=== PATIENT | male | born 1990 | race Two or more races ===

== ENCOUNTER 2021-07-19 22:50 | Emergency (ER) | payer OTHER, SELFPAY ==
[2021-07-20 00:22] VITALS: BP 113/71; PULSE 83; RESP 16; TEMP 37.3; O2SAT 97; BMI 29.5
--- NOTE | 2021-07-20 00:49 | ED.ABDPAIN ---
HPI - Abdominal Pain General Chief Complaint: Abdominal Pain Stated Complaint: covid + Time Seen by Provider: 07/20/21 00:48 Source: patient Mode of arrival: ambulatory Limitations: no limitations History of Present Illness HPI narrative: Patient tested COVID positive on 07/14 another family member also sick was at [facility] at the left without being seen repeat COVID test was also positive and labs were done which were stable chest x-ray showed few infiltrates patient comes here now because of diffuse cramping abdominal pain with coughing with nausea and vomiting patient denies any shortness of breath was saturating 98% at room air Related Data Previous Rx's Medication Instructions Recorded dexamethasone 6 mg tablet 6 mg PO DAILY #7 tab 07/20/21 (Decadron) ondansetron 4 mg disintegrating 4 mg PO Q6-8H PRN #14 tab 07/20/21 tablet Allergies Allergy/AdvReac Type Severity Reaction Status Date / Time No Known Allergies Allergy Verified 07/20/21 01:00 Physical Exam Vital Signs: Vital Signs: Last Vital Signs Temp 99.1 F 07/20/21 00:22 Pulse 83 07/20/21 01:15 Resp 16 07/20/21 01:15 BP 140/83 H 07/20/21 01:15 Pulse Ox 98 07/20/21 01:15 Body Mass Index 29.5 Appearance: Alert. Oriented X3. No acute distress. Eyes: No pallor or icterus ENT: Pharynx normal. Oral Mucosa moist Neck: Normal inspection. Neck supple. CVS: Normal heart rate and rhythm. Pulses normal. Respiratory: No respiratory distress. Equal air entry bilateral, no wheezing/rales/rhonchi Abdomen: Soft and nontender. Bowel sounds are present, no mass palpable, no CVA tenderness Skin: Skin warm and dry. Normal skin color. Normal skin turgor. Extremities: No lower extremity edema. No calf tenderness Neuro: Oriented X 3. MDM - Abdominal Pain MDM Narrative Medical decision making narrative: Patient with COVID-19 symptoms without any hypoxia discharge patient home on Zofran and dexamethasone. Patient medical records were reviewed from [facility] showed leukopenia of 2.9 otherwise labs were stable chest x-ray done showed few infiltrates Discharge Plan Discharge Clinical Impression: COVID-19 Patient Disposition: Home, Self-Care Instructions: COVID-19 (Coronavirus Disease 2019) (ED) Additional Instructions: Drink plenty of fluids Tylenol/Motrin for pain and fever Zofran for vomiting Keep social distancing Prescriptions: New dexamethasone [Decadron] 6 mg tablet 6 mg PO DAILY Qty: 7 RF: 0 ondansetron 4 mg tablet,disintegrating 4 mg PO Q6-8H PRN (Reason: Vomiting) Qty: 14 RF: 0 Interventions: ED Discharge Assessment Last Done: 07/20/21 01:31 Discharge Date/Time: 07/20/21 01:31 [facility] Social History Social History Alcohol intake: never Patient Tobacco Use Status: Never used Tobacco Use of substances other than those prescribed or required for medical reasons: No Advance Directives: No Advance Directives Information Provided: No
[2021-07-20] MEDS: dexAMETHasone 6 MG TABLET PO (01:13)
[2021-07-20] MEDS: Ondansetron ODT 4 MG TAB.RAPDIS TRANSLINGU (01:13)
[2021-07-20 01:15] VITALS: BP 140/83; PULSE 83; RESP 16; O2SAT 98
== END 2021-07-20 01:31 | disposition home or self-care (01) ==
LOC: HO.ED 07-20 01:14
PROVIDERS: Emergency Provider Internal Medicine
DX: U07.1 COVID-19 (principal); R10.9 Unspecified abdominal pain; Z79.899 Other long term (current) drug therapy
CPT/HCPCS: 99283; 99284; J8540

== ENCOUNTER 2022-05-24 11:32 | Emergency (ER) | payer OTHER, SELFPAY ==
--- NOTE | ~2022-05-24 | CT_ITS ---
EXAMINATION: CT ABDOMEN AND PELVIS WITHOUT AND WITH CONTRAST CLINICAL INFORMATION: GI bleed with bright red blood per rectum COMPARISON: None TECHNIQUE: Initial noncontrast CT scan of the abdomen and pelvis was performed. Next, imaging was performed from the superior aspect of the liver through the pubic symphysis following administration of 80 mL of Omnipaque 350. Delayed images were not performed as part of this GI bleeding study presumably because of [facility] policy and the patient's age under 50 years of age according to the technologist. Sagittal and coronal reformatted images were obtained on the technologist's workstation. This CT examination was performed using dose optimization techniques as appropriate, variously including the following: *Automated exposure control *Adjustment of mA and/or kV according to patient size (this includes techniques or standardized protocols for targeted exams where dose is matched to indication/reason for exam; i.e. extremities or head) *Use of iterative reconstruction technique DLP: 1148 mGy-cm FINDINGS: LUNG BASES: The visualized lung bases are unremarkable. LIVER, GALLBLADDER, AND BILIARY TREE: The liver is normal in size, shape, and attenuation. No focal hepatic lesion or biliary ductal dilatation is present. The gallbladder is unremarkable with no evidence of radiopaque gallstones, gallbladder wall thickening, or obvious pericholecystic inflammatory changes. PANCREAS: Unremarkable. SPLEEN: Unremarkable. ADRENAL GLANDS: Unremarkable. KIDNEYS AND URETERS: The kidneys are normal in size, shape, and attenuation. No hydronephrosis, hydroureter, or calculi seen. No perinephric stranding. BLADDER: Unremarkable. GASTROINTESTINAL TRACT: The small and large bowel are anatomically unremarkable. In the sigmoid colon, there is one subtle focus of increased attenuation seen on the immediate postcontrast images compared to the noncontrast images. Unfortunately, as stated above, delayed images were not obtained to assess for active bleeding. No other suspicious areas in the bowel are seen. The appendix is unremarkable. ABDOMINAL WALL: No significant hernia is appreciated. LYMPH NODES: No retroperitoneal lymphadenopathy VASCULAR: The abdominal aorta and visualized iliofemoral vessels all appear normal. The celiac SMA and GAUDENCIO are all widely patent. There are single renal arteries present bilaterally which are widely patent. PELVIC VISCERA: Prostate and seminal vesicles appear normal. OSSEOUS STRUCTURES: Unremarkable. CT/CT gi bleed abd pel wo/w con IMPRESSION: There may be an active GI bleed as a subtle finding is seen on the arterial phase images in the sigmoid colon with a single punctate high density region not definitely seen on the noncontrast exam. Only noncontrast and immediate arterial phase imaging was performed. Sigmoidoscopy may be useful for further evaluation. Other alternatives would be a radionuclide tagged red blood cell or a repeat triple phase CT scan however if there is an active bleed, contrast may be within the bowel on the noncontrast images. Fleischner guidelines were followed. This critical result was discussed with Rama Tony NP immediately after the exam and it was ascertained that the content and urgency of the report was understood at the time of direct communication.
[2022-05-24 11:49] VITALS: BP 115/78; PULSE 75; RESP 20; TEMP 37; O2SAT 97; BMI 28.7
[2022-05-24 13:59] LABS: MANUAL DIFF FLAG NO
[2022-05-24 14:01] LABS: Basophils Percent Auto 0.2 % (0-2); Hematocrit 44.7 % (42.0-52.0); Imm Gran Abs Auto 0.02 X10*3/uL (0.00-0.03); Imm Gran Pct Auto 0.2 % (0.0-0.4); Lymphocytes Absolute Auto 0.6 X10*3/uL (1.2-4.9); Lymphocytes Percent Auto 5.3 % (20-40); Mean Corpuscular HGB Conc 35.8 g/dl (31.0-36.0); Mean Corpuscular Hemoglobin 31.1 pg (27.0-33.0); Mean Platelet Volume 11.9 fL (9.4-12.4); Monocytes Absolute Auto 0.5 X10*3/uL (0.1-1.2); Monocytes Percent Auto 4.3 % (2-11); Neutrophils Absolute Auto 9.8 x10*3/uL (2.0-8.3); Platelet Count 221 X10*3/uL (160-400); Red Blood Count 5.14 X10*6/uL (4.60-5.80); Red Cell Distribution Width 12.5 % (11.0-16.0); White Blood Count 10.9 X10*3/uL (4.8-10.8)
[2022-05-24 14:21] LABS: Anion Gap 12 (12-20); Blood Urea Nitrogen 11 mg/dL (9-16); Calcium 9.4 mg/dL (8.4-10.2); Carbon Dioxide 27 mmol/L (22-29); Chloride 105 mmol/L (96-108); Creatinine Clr Calc Pharmacy 97.1; Estimated Glomerular Filt Rate > 60; Glucose Random 125 mg/dL (60-115); Potassium 4.7 mmol/L (3.3-5.1); Sodium 139 mmol/L (135-145)
[2022-05-24 20:31] VITALS: BP 135/87; PULSE 83; RESP 18; TEMP 37; O2SAT 99
[2022-05-24] MEDS: iohexoL 350 MG/ML 100 ML INFUS..BTL IV (21:51)
--- NOTE | 2022-05-24 22:55 | ED_ITS ---
HPI - GI Bleed General Chief complaint: Nausea/Vomiting/Diarrhea Stated complaint: lower abd pain, bleeding from rectum Time Seen by Provider: 05/24/22 20:26 Source: patient Mode of arrival: ambulatory Limitations: no limitations History of Present Illness HPI Narrative: 31-year-old male presents with lower abdominal pain and bright red blood per rectum that started around 09:00. Stated that he has had diarrhea since 04:00, and noted bleeding at 9. He has filled the toilet bowl several times with bright red blood. He has not had experience like this before, does not report any family history of colon cancer, Crohn's or colitis. He feels weak, tired, and bloated. He does not report fevers, chills, chest pain or pressure, palpitations, diaphoresis, or changes in vision. MD complaint: blood on toilet paper and gross hematochezia Onset (ago): day(s) (1) Pain Consistency: constant Severity: moderate Relieving factors: none Exacerbating factors: bowel movement and movement Associated symptoms: abdominal pain and malaise Treatments Prior to Arrival: none Related Data Previous Rx's Medication Instructions Recorded dexamethasone 6 mg tablet 6 mg PO DAILY #7 tabs 07/20/21 (Decadron) ondansetron 4 mg disintegrating 4 mg PO Q6-8H PRN Vomiting #14 tabs 07/20/21 tablet Allergies Allergy/AdvReac Type Severity Reaction Status Date / Time No Known Allergies Allergy Verified 07/20/21 01:00 Review of Systems Review of Systems: Constitutional: No Fever, No Chills, positive fatigue ENT/Mouth: No Ear Pain, No Hoarseness, No sore throat Eyes: No Eye Pain, No Swelling, No Redness, No Foreign Body Cardiovascular: No Chest Pain, No SOB Respiratory: No Cough, No Dyspnea Gastrointestinal: No Nausea, No Vomiting, positive Diarrhea, positive abdominal Pain, positive hematochezia Genitourinary: No Dysuria, No Hematuria Musculoskeletal: No joint pain, No Myalgias, No Joint Swelling Skin: No Skin lacerations, No rash Neuro: No Weakness, No Numbness, No Paresthesias, No Loss of Consciousness, No Dizziness, No Headache Psych: No Anxiety/Panic, No Depression Heme/Lymph: no easy bruising, no Lymphadenopathy Endocrine: No Polyuria, No Polydipsia Yes all other systems are reviewed and are negative [facility] Past Medical History Attestation statement: The following information was validated with the patient. Source: old records reviewed Social History Social History Alcohol intake: never Patient Tobacco Use Status: Never used Tobacco Advance Directives: No Advance Directives Information Provided: Yes Physical Exam Vital Signs: Vital Signs: Last Vital Signs Temp 98.6 F 05/24/22 20:31 Pulse 79 05/25/22 02:00 Resp 14 05/25/22 02:00 BP 130/72 05/25/22 02:00 Pulse Ox 93 05/25/22 02:00 O2 Del Method 05/25/22 02:00 BMI result Body Mass Index 28.7 Appearance: Alert. Oriented X3. No acute distress. Appears fatigued. Eyes: Pupils equal, round and reactive to light. ENT: Pharynx normal. Neck: Normal inspection. Neck supple. CVS: Normal heart rate and rhythm. Pulses normal. Respiratory: No respiratory distress. Breath sounds normal. Abdomen: Soft and diffusely tender, no rigidity or distention. Skin: Skin warm and dry. Normal skin color. Normal skin turgor. Extremities: Moves all extremities against resistance. Neuro: No motor deficit. No sensory deficit. Cranial nerves 2-12 intact. Course Course Course Narrative: 31-year-old male presents to the emergency department with bright red blood per rectum. Has been in the emergency department waiting room for 11 hours. Started with diarrhea at 04:00 then had bright red blood at 09:00. Vital signs are stable and within normal limits. Repeat CBC indicates white count of 12.8, H&H of 15.4/43.3. Patient is physically symptomatic with weakness and fatigue. 22:45 patient brought back after 11 hour Emergency Room wait time. At this time this BAG PRESSER had a discussion with radiologist, due to policy of this hospital, GI study was unable to be completed correctly. There should have been a delay with the IV contrast for optimal reading. I did apologize to the patient regarding this study. 23:22 discussion with on-call Gastroenterology. Patient will not be accepted at this facility because we do not have IR. 23:48 discussion with Ilia. Patient has been accepted by Dr. Lee to [facility]. Patient verbalized understanding of and agrees to plan of care. Understands need to be transferred. Consultations Consultation #1: Harley Time: 23:39 MDM - GI Bleed Differential Diagnosis Differential diagnosis: Likely hemorrhoids, infectious diarrhea, gastritis, Lower gastrointestinal hemorrhage, hematochezia and anal fissure Medical Records Attestation: I reviewed the patient's medical records. Lab Data Attestation: I reviewed the patient's lab results. Result diagrams: 05/24/22 23:10 05/24/22 23:10 Labs: Lab Results 05/24/22 05/24/22 05/24/22 Range/Units 13:54 13:54 23:10 WBC 10.9 H 12.8 H (4.8-10.8) X10*3/uL RBC 5.14 5.03 (4.60-5.80) X10*6/uL Hgb 16.0 15.4 (14.0-18.0) g/dl Hct 44.7 43.3 (42.0-52.0) % MCV 87.0 86.1 (80.0-98.0) fL MCH 31.1 30.6 (27.0-33.0) pg MCHC 35.8 35.6 (31.0-36.0) g/dl RDW 12.5 12.3 (11.0-16.0) % Plt Count 221 210 (160-400) X10*3/uL MPV 11.9 11.6 (9.4-12.4) fL Immature Gran % (Auto) 0.2 0.2 (0.0-0.4) % Neut % (Auto) 90.0 H 80.7 H (45-73) % Lymph % (Auto) 5.3 L 11.3 L (20-40) % Isabella % (Auto) 4.3 7.5 (2-11) % Eos % (Auto) 0.0 0.1 (0-4) % Baso % (Auto) 0.2 0.2 (0-2) % Lymph # (Auto) 0.6 L 1.4 (1.2-4.9) X10*3/uL Isabella # (Auto) 0.5 1.0 (0.1-1.2) X10*3/uL Eos # (Auto) 0.0 0.0 (0.0-0.4) X10*3/uL Baso # (Auto) 0.0 0.0 (0.0-0.2) X10*3/uL Abs Immat Gran (auto) 0.02 0.03 (0.00-0.03) X10*3/uL Absolute Neuts (auto) 9.8 H 10.3 H (2.0-8.3) x10*3/uL Absolute Nucleated RBC 0.000 0.000 (0.0-0.012) X10*3/uL Nucleated RBC % (auto) 0.0 0.0 (0.0-0.2) /100WBC Sodium 139 (135-145) mmol/L Potassium 4.7 (3.3-5.1) mmol/L Chloride 105 (96-108) mmol/L Carbon Dioxide 27 (22-29) mmol/L Anion Gap 12 (12-20) BUN 11 (9-16) mg/dL Creatinine 1.08 (0.5-1.4) mg/dL Estim Creat Clear Calc 97.1 Estimated GFR > 60 Random Glucose 125 H (60-115) mg/dL Calcium 9.4 (8.4-10.2) mg/dL COVID-19 ([place]) (Negative) COVID-19 Clin Com 05/24/22 05/25/22 Range/Units 23:10 00:26 WBC (4.8-10.8) X10*3/uL RBC (4.60-5.80) X10*6/uL Hgb (14.0-18.0) g/dl Hct (42.0-52.0) % MCV (80.0-98.0) fL MCH (27.0-33.0) pg MCHC (31.0-36.0) g/dl RDW (11.0-16.0) % Plt Count (160-400) X10*3/uL MPV (9.4-12.4) fL Immature Gran % (Auto) (0.0-0.4) % Neut % (Auto) (45-73) % Lymph % (Auto) (20-40) % Isabella % (Auto) (2-11) % Eos % (Auto) (0-4) % Baso % (Auto) (0-2) % Lymph # (Auto) (1.2-4.9) X10*3/uL Isabella # (Auto) (0.1-1.2) X10*3/uL Eos # (Auto) (0.0-0.4) X10*3/uL Baso # (Auto) (0.0-0.2) X10*3/uL Abs Immat Gran (auto) (0.00-0.03) X10*3/uL Absolute Neuts (auto) (2.0-8.3) x10*3/uL Absolute Nucleated RBC (0.0-0.012) X10*3/uL Nucleated RBC % (auto) (0.0-0.2) /100WBC Sodium 139 (135-145) mmol/L Potassium 3.8 (3.3-5.1) mmol/L Chloride 103 (96-108) mmol/L Carbon Dioxide 28 (22-29) mmol/L Anion Gap 12 (12-20) BUN 9 (9-16) mg/dL Creatinine 1.04 (0.5-1.4) mg/dL Estim Creat Clear Calc 100.8 Estimated GFR > 60 Random Glucose 114 (60-115) mg/dL Calcium 9.1 (8.4-10.2) mg/dL COVID-19 ([place]) Negative (Negative) COVID-19 Clin Com See Note Imaging Data CT scan - abdomen: Attestation: I personally reviewed and interpreted this imaging study as follows: Radiologist's impression: TECHNIQUE: Initial noncontrast CT scan of the abdomen and pelvis was performed. Next, imaging was performed from the superior aspect of the liver through the pubic symphysis following administration of 80 mL of Omnipaque 350. Delayed images were not performed as part of this GI bleeding study presumably because of [facility] policy and the patient's age under 50 years of age according to the technologist. Sagittal and coronal reformatted images were obtained on the technologist's workstation.? This CT examination was performed using dose optimization techniques as appropriate, variously including the following: *Automated exposure control *Adjustment of mA and/or kV according to patient size (this includes techniques or standardized protocols for targeted exams where dose is matched to indication/reason for exam; i.e. extremities or head) *Use of iterative reconstruction technique DLP: 1148 mGy-cm FINDINGS: LUNG BASES: The visualized lung bases are unremarkable.? LIVER, GALLBLADDER, AND BILIARY TREE: The liver is normal in size, shape, and attenuation. No focal hepatic lesion or biliary ductal dilatation is present. The gallbladder is unremarkable with no evidence of radiopaque gallstones, gallbladder wall thickening, or obvious pericholecystic inflammatory changes.? PANCREAS: Unremarkable.? SPLEEN: Unremarkable.? ADRENAL GLANDS: Unremarkable.? KIDNEYS AND URETERS: The kidneys are normal in size, shape, and attenuation. No hydronephrosis, hydroureter, or calculi seen. No perinephric stranding. ? BLADDER: Unremarkable.? GASTROINTESTINAL TRACT: The small and large bowel are anatomically unremarkable. In the sigmoid colon, there is one subtle focus of increased attenuation seen on the immediate postcontrast images compared to the noncontrast images. Unfortunately, as stated above, delayed images were not obtained to assess for active bleeding. No other suspicious areas in the bowel are seen. The appendix is unremarkable.? ABDOMINAL WALL: No significant hernia is appreciated.? LYMPH NODES: No retroperitoneal lymphadenopathy VASCULAR: The abdominal aorta and visualized iliofemoral vessels all appear normal. The celiac SMA and GAUDENCIO are all widely patent. There are single renal arteries present bilaterally which are widely patent. PELVIC VISCERA: Prostate and seminal vesicles appear normal.? OSSEOUS STRUCTURES: Unremarkable.? CT/CT gi bleed abd pel wo/w con IMPRESSION: There may be an active GI bleed as a subtle finding is seen on the arterial phase images in the sigmoid colon with a single punctate high density region not definitely seen on the noncontrast exam.? Only noncontrast and immediate arterial phase imaging was performed. Sigmoidoscopy may be useful for further evaluation. Other alternatives would be a radionuclide tagged red blood cell or a repeat triple phase CT scan however if there is an active bleed, contrast may be within the bowel on the noncontrast images. ? Fleischner guidelines were followed. ? This critical result was discussed with Rama Tony BAG PRESSER immediately after the exam and it was ascertained that the content and urgency of the report was understood at the time of direct communication. Discharge Plan Discharge Clinical Impression: Lower GI bleed Patient Disposition: [facility] Transfer Details: [facility], Dr Lee Prescriptions: No [facility] dexamethasone [Decadron] 6 mg tablet 6 mg PO DAILY Qty: 7 0RF ondansetron 4 mg tablet,disintegrating 4 mg PO Q6-8H PRN (Reason: Vomiting) Qty: 14 0RF
[2022-05-24 23:23] LABS: Basophils Percent Auto 0.2 % (0-2); Eosinophils Percent Auto 0.1 % (0-4); Hematocrit 43.3 % (42.0-52.0); Hemoglobin 15.4 g/dl (14.0-18.0); Imm Gran Abs Auto 0.03 X10*3/uL (0.00-0.03); Imm Gran Pct Auto 0.2 % (0.0-0.4); Lymphocytes Absolute Auto 1.4 X10*3/uL (1.2-4.9); Lymphocytes Percent Auto 11.3 % (20-40); MANUAL DIFF FLAG NO; Mean Corpuscular HGB Conc 35.6 g/dl (31.0-36.0); Mean Corpuscular Hemoglobin 30.6 pg (27.0-33.0); Mean Corpuscular Volume 86.1 fL (80.0-98.0); Mean Platelet Volume 11.6 fL (9.4-12.4); Monocytes Percent Auto 7.5 % (2-11); Neutrophils Absolute Auto 10.3 x10*3/uL (2.0-8.3); Neutrophils Percent Auto 80.7 % (45-73); Platelet Count 210 X10*3/uL (160-400); Red Blood Count 5.03 X10*6/uL (4.60-5.80); Red Cell Distribution Width 12.3 % (11.0-16.0); White Blood Count 12.8 X10*3/uL (4.8-10.8)
[2022-05-24 23:44] LABS: Anion Gap 12 (12-20); Blood Urea Nitrogen 9 mg/dL (9-16); Calcium 9.1 mg/dL (8.4-10.2); Carbon Dioxide 28 mmol/L (22-29); Chloride 103 mmol/L (96-108); Creatinine Clr Calc Pharmacy 100.8; Estimated Glomerular Filt Rate > 60; Glucose Random 114 mg/dL (60-115); Potassium 3.8 mmol/L (3.3-5.1); Sodium 139 mmol/L (135-145)
[2022-05-25] VITALS: BP 126/81; PULSE 73; O2SAT 97
[2022-05-25 00:14] VITALS: BP 139/85; BP 143/84; PULSE 85
--- NOTE | 2022-05-25 00:26 | PC.NURSE ---
This US/Pct called [facility] transfer line at 2343 per Rama LOMELI and spoke to Amena she stated they are closed to medical transfers, At 2344 called [facility] and spoke with Marissa she stated they are closed to transfers. At 2346 called [facility] and spoke to Wen awaiting a call back at this time.At [address] [facility] pt is going to [id number] Bed 1. [facility] called at 0026 for a BLS transfer and spoke to Louis he stated there is none available and he will try to pass. Rn and Rama RAMOS aware, awaiting a call back.
[2022-05-25] MEDS: ondansetron HCL 4 MG/2 ML VIAL IVPUSH ×2 (00:48→10:17)
[2022-05-25] MEDS: Morphine Sulfate 4 MG/ML CARTRIDGE IVPUSH (00:48)
[2022-05-25 01:04] LABS: COVID-19 Test Negative (Negative); IDNOW Serial# 55D5AD1C
--- NOTE | 2022-05-25 01:27 | PC.NURSE ---
At 0112 Louis called from [facility] and stated they were unable to pass, and Ems Booked for 0830am Web Design Intern Rama aware and rn aware.
[2022-05-25] MEDS: levoFLOXacin/D5W 750 MG/150 ML PIGGYBACK 100 MG IV (01:40)
[2022-05-25] MEDS: metroNIDAZOLE/NS 500 MG/100 ML PIGGYBACK 100 MG IV (01:42)
[2022-05-25 02:00] VITALS: BP 130/72; PULSE 79; RESP 14; O2SAT 93
[2022-05-25 04:00] VITALS: BP 93/51; PULSE 76; O2SAT 96
[2022-05-25 06:00] VITALS: BP 99/52; PULSE 64; O2SAT 95
--- NOTE | 2022-05-25 06:12 | PC.NURSE ---
report called to [facility]
--- NOTE | 2022-05-25 07:40 | PC.NURSE ---
Contacted pharmacy because flagyl was ordered before pt is transferred. Last dose administered at 0330 and it is to soon to receive another dose.
[2022-05-25 09:21] VITALS: BP 118/69; PULSE 84; RESP 16; TEMP 36.8; O2SAT 98
[2022-05-25] MEDS: Acetaminophen 325 MG TABLET 975 MG PO (10:17)
== END 2022-05-25 11:21 | disposition short-term general hospital (02) ==
PROVIDERS: Nurse Practitioner Family; Emergency Provider Emergency Medicine
DX: K92.2 Gastrointestinal hemorrhage, unspecified (principal); R10.30 Lower abdominal pain, unspecified; Z20.822 Contact with and (suspected) exposure to COVID-19; R53.1 Weakness; R53.83 Other fatigue
CPT/HCPCS: 36415; 74178; 80048; 85025; 87635; 96365; 96367; 96375; 96376; 99285; J1956; J2270; J2405; Q9967